=== PATIENT | male | born 1950 | race African-American/Black ===

== ENCOUNTER → 2016-08-19 | Outpatient (CLI) | payer OTHER ==
[2016-02-20 21:28] VITALS: BP 146/70
[~2016-08-19] MED LIST: ALLO100T PO; ASPI-482 PO; CEPH-264 PO; DRON400T PO; GLYB5TAB3 PO; HYDR-2762 PO; LISI2.5T PO; METO10TA PO; MULT-18 PO; NIAC1000 PO; OMEG1CAP6 PO; PANT40TA3 PO; SITA50TA PO; TAMS0.4C2 PO; WARF7.5T6 PO
--- NOTE | 2016-08-19 09:22 | KCIC ---
Examination: CT right shoulder without contrast HISTORY: History of right shoulder pain with movement after lifting injury COMPARISON: None available TECHNIQUE: Axial CT images of the right shoulder was performed without contrast. Coronal and sagittal reformats were performed Exposure: One or more of the following individualized dose reduction techniques were utilized for this examination: 1. Automated exposure control 2. Adjustment of the mA and/or kV according to patient size 3. Use of iterative reconstruction technique FINDINGS: The humerus head is within the glenoid. Mild degenerative disease identified in the acromioclavicular joint. There is no acute fracture identified. The muscle bulk grossly appears unremarkable. The acromion is type II with the inferior aspect of the acromion abutting the supraspinatus tendon anteriorly. The visualized right lung is grossly appears unremarkable. IMPRESSION: 1. No acute osseous findings. 2. The inferior aspect of the acromion abuts the superior aspect the supraspinatus tendon. Correlate for impingement. 3. Mild degenerative changes glenohumeral joint, acromioclavicular joint. Electronically signed by: Shane Hdez MD (08/19/2016 9:19 AM)
== END | disposition home or self-care (01) ==
LOC: KCIC CT 08:20
PROVIDERS: ATTEND Family Medicine
DX: M25.511 Pain in right shoulder (principal)
CPT/HCPCS: 73200

== ENCOUNTER → 2016-09-13 | Day surgery (SDC) | payer OTHER ==
[~2016-09-13] MED LIST changes: +CETI10TA16 PO; +FLUT1DIS IH; +HYDROmorphone 2 MG/ML VIAL IV PRN; +INSU300I SQ; +IV RINGERS,LACTATED 1000ML 1,000 ML IV SCH; +LIDOCAINE 1% 1 ML SYRINGE. ID PRN; +LIDOCAINE 2% PF Vial for OR 5 ML VIAL. ONE; +LINA5TAB4 PO; +METO25TA4 PO; +MORPHINE SULFATE 2 MG/ML DISP.SYRIN. IV PRN; +ONDANSETRON PF 4 MG/2 ML VIAL. IV PRN; +PROCHLORPERAZINE 10 MG/2 ML VIAL. IV PRN; +PROPOFOL 40 ML IV ONE; +SIMV20TA3 PO; +fentaNYL PF VIAL 100 MCG/2 ML VIAL IV PRN
--- NOTE | 2016-09-13 08:31 | PDOC1 ---
HISTORY & PHYSICAL H&P Guillermo Mosqueda [id number] 1950 08/12/2016 11:15 AM 02/27 [facility], [facility] OUR PATIENTS COME FIRST [address] [place], [place] [id number] Ph. [phone] Patient: Guillermo Mosqueda Date of : 1950 Date: 08/12/2016 11:15 AM Visit Type: Consult This 66 year old male presents for Blood in stool. History of Present Illness: 1. Blood in stool Quality: FOBT positive. Pertinent negatives include abdominal distention, abdominal pain, bloating, change in bowel habits, constipation, diarrhea, nausea , rectal pain, vomiting and weight loss. Additional information: Had ?? colonoscopy more then 4 yrs ago. Negative. INTAKE COMMENTS: Intake Comments: Nurse Note: The pt is here today due to positive hemoccult cards with his PCP, the pt states that he does have some dark stools. PROBLEM LIST: Problem Description Onset Date Chronic Notes Diabetic nephropathy associated with type 2 diabetes mellitus 04/01/2015 Hyperlipidemia LDL goal <100 04/01/2015 GERD without esophagitis 04/01/2015 Chronic kidney disease, stage 3, mod decreased GFR 05/01/2015 Uncomplicated asthma, unspecified asthma severity 04/01/2015 Paroxysmal atrial fibrillation 04/01/2015 PAST MEDICAL/SURGICAL HISTORY (Detailed) Disease/disorder Onset Date Management Date Comments bilateral SHIELA for osteoarhtritis left shouolder surgery for rotator cuff tear Appendectomy hemorrrhoidectomy Carpal tunnel release pacemaker 2001 Asthma Diabetes type 2 Hyperlipidemia Paroxysmal atrial fibrillation Medications (Active): Started Medication Directions Instruction Stopped 04/01/2015 Advair Diskus 100 mcg-50 mcg/dose powder for inhalation 2 puffs once daily 1 month supply 04/01/2015 allopurinol 100 mg tablet take 1 tablet by ORAL route every day 04/01/2015 aspirin 81 mg tablet,delayed release take 2 tablet by oral route every day 04/01/2015 Fish Oil 1,000 mg capsule take 2 by Oral route every day 04/28/2015 LISINOPRIL 2.5 MG TABLET TAKE ONE TABLET BY MOUTH DAILY 04/01/2015 metoprolol succinate ER 25 mg tablet,extended release 24 hr 1 po every hs 04/01/2015 multivitamin tablet take 1 tablet by oral route every day with food 04/01/2015 Niaspan 1,000 mg tablet,extended release 1 po every hs 05/01/2015 [place] 7.5 mg-325 mg tablet 1 po bid prn chronic pain #338.29 04/01/2015 Protonix 40 mg tablet,delayed release take 1 tablet by oral route every day 04/02/2015 simvastatin 40 mg tablet take 1 tablet by oral route every evening New dose 04/02/15; 04/01/2015 tamsulosin ER 0.4 mg capsule,extended release 24 hr take 1 capsule by oral route every day 1/2 hour following the same meal each day 04/01/2015 Toujeo SoloStar 300 unit/mL (1.5 mL) subcutaneous insulin pen 24 units at hs 04/01/2015 Tradjenta 5 mg tablet take 1 tablet by oral route every day 11/03/2015 ZYRTEC 10 MG TABLET TAKE [1] TABLET BY MOUTH ONCE DAILY Allergies: Ingredient Reaction Medication Name Comment CIPROFLOXACIN HCL nausea and vomiting Cipro CIPROFLOXACIN nausea and vomiting Cipro REVIEW OF SYSTEMS System Neg/Pos Details Constitutional Negative Chills, fever, malaise and weight loss. ENMT Negative Sore throat. Eyes Negative Double vision. Respiratory Negative Dyspnea and wheezing. Cardio Negative Chest pain and irregular heartbeat/palpitations. GI Positive See HPI. GI Negative Abdominal distention, abdominal pain, bloating, change in bowel habits, constipation, diarrhea, nausea, see HPI, rectal pain and vomiting. Negative Dysuria and hematuria. Endocrine Negative Cold intolerance and heat intolerance. Psych Negative Anxiety. Integumentary Negative Hives and rash. MS Negative Joint pain. Chris/Lymph Negative Easy bleeding and easy bruising. Allergic/Immuno Negative Food allergies. VITAL SIGNS Time BP mm/Hg Pulse /min Resp /min Temp F Ht ft Ht in Ht cm Wt lb Wt kg BMI kg/ m2 BSA m2 O2 Sat% 12:32 PM 132/78 86 97.8 0.0 0.00 198.20 89.902 96 Time Measured by 12:32 PM Cristina Prince PHYSICAL EXAM: Exam Findings Details Constitutional Normal Well developed. Eyes Normal Conjunctiva - Right: Normal, Left: Normal. Sclera - Right: Normal, Left: Normal. Nasopharynx Normal Lips/teeth/gums - Normal. Neck Exam Normal Inspection - Normal. Thyroid gland - Normal. Respiratory Normal Inspection - Normal. Auscultation - Normal. Cardiovascular Normal Regular rate and rhythm. No murmurs, gallops, or rubs. Vascular Normal Pulses - Carotids: Normal, Femoral: Normal, Dorsalis pedis: Normal. Abdomen Normal Inspection - Normal. Anterior palpation - No guarding. No abdominal tenderness. No hepatic enlargement. No splenic enlargement. No hernia. No ascites. Skin Normal Inspection - Normal. Extremity Normal No edema. Psychiatric * Oriented to time, place, person and situation. Psychiatric Normal Appropriate mood and effect. Assessment/Plan # Detail Type Description 1. Assessment Gastrointestinal hemorrhage, unspecified gastrointestinal hemorrhage type (K92.2). Patient Plan schedule colonoscopy and EGD at [facility] Plan Orders Further diagnostic evaluations ordered today include(s) Colonoscopy and EGD to be performed today. He is to schedule a follow-up visit with Mg Ch MD upon completion of work-up Electronically signed by: Mg Ch MD 08/12/2016 02:55 PM Document generated by: Mg Ch 08/12/2016 02:55 PM Fabiano Novak MD, Family Practice; Jordan Black MD Internal Medicine; Rossi Johnson MD, Internal Medicine; Nicanor Ch MD Internal Medicine; Mg Ch MD, Gastroenterology; Rajan Cardenas MD, Rheumatology, S. Kerwin Goldsmith, Physical Medicine/Rehab JKevin Edwards APRN ------ 09/13/16 Patient seen and examined. No change in H&P. MG CH MD Sep 13, 2016 08:31
[2016-09-13 10:06] VITALS: BP 104/58
== END | disposition home or self-care (01) ==
LOC: ENDOS 08:02
PROVIDERS: ATTEND Internal Medicine Gastroenterology
DX: K64.0 First degree hemorrhoids (principal); K21.0 Gastro-esophageal reflux disease with esophagitis; E78.00 Pure hypercholesterolemia, unspecified; I48.91 Unspecified atrial fibrillation; I10 Essential (primary) hypertension; J45.909 Unspecified asthma, uncomplicated; E11.9 Type 2 diabetes mellitus without complications; F17.200 Nicotine dependence, unspecified, uncomplicated; Z96.89 Presence of other specified functional implants; Z87.39 Personal history of other diseases of the musculoskeletal system and connective tissue; Z96.643 Presence of artificial hip joint, bilateral; Z86.39 Personal history of other endocrine, nutritional and metabolic disease; Z86.69 Personal history of other diseases of the nervous system and sense organs; Z88.1 Allergy status to other antibiotic agents; Z88.8 Allergy status to other drugs, medicaments and biological substances
CPT/HCPCS: 43235; 45378; J2001; J2704

== ENCOUNTER 2016-10-18 12:37 | Day surgery (SDC) | payer OTHER ==
[~2016-10-18] VITALS: Ht 175.3 cm; Wt 90.0 kg
[~2016-10-18 12:37] MED LIST changes: +CLINDAMYCIN 600MG PREMIX 50 ML IV PRN; +PROPOFOL 20 ML IV ONE; -PROPOFOL 40 ML IV ONE; +fentaNYL PF VIAL 100 MCG/2 ML VIAL ONE
[2016-10-18] MEDS ORDERED: BUPIVACAINE 0.25% 50 ML VIAL. ONE (13:14)
[2016-10-18] MEDS ORDERED: SEVOFLURANE 16 TO 30 MINUTES. IH ONE (13:45)
[2016-10-18] MEDS ORDERED: DEXAMETHASONE SOD PHOS 20 MG/5 ML VIAL. ONE (13:45)
[2016-10-18] MEDS ORDERED: ONDANSETRON PF 4 MG/2 ML VIAL. ONE (13:46)
--- NOTE | 2016-10-18 14:09 | DISCH ---
DISCHARGE INSTRUCTIONS Condition on Discharge Condition on Discharge: Stable Activity After Discharge Activity Instructions for Disc: Other, see below Other activity instructions: gentle range of motion of right elbow only may eat and do fine motor tasks Lifting Instructions after Dis: No heavy lifting, No pulling or pushing, Do not lift >10 pounds Diet after Discharge Diet after Discharge: Regular Wound Incision Care Wound/Incision Care: Keep wound elevated, Change dressing Other wound/incision instructi: May remove dressing after 3 days if no drainage may get wet in shower Contacting the DRKevin after DC Call your doctor for: Concerns you may have Follow-Up Follow up with: Dr. Saxena 10 days ANSELMO SAXENA MD Oct 18, 2016 14:09
[2016-10-18] MEDS ORDERED: HYDR-965 PO (14:10)
--- NOTE | 2016-10-18 14:17 | PDOC4 ---
Operative Note Operative Note Date of surgery: 10/18/2016 Preoperative diagnosis: Right cubital tunnel syndrome Postoperative diagnosis: Same Surgeon: Hemanth Anesthesia: Gen. endotracheal Estimated blood loss: 15 mL Complications: None Operative findings: Moderate to severe ulnar nerve compression at the cubital tunnel Operative indications: Patient is a 66-year-old male with severe numbness in the fourth and fifth fingers of his right hand dominant and tingling feelings of paresthesia confirmed by EMG test that showed moderate to severe compression at the cubital tunnel. I had gone over with him the usual treatment of nerve compression at the elbow including the possibility of generally keeping the elbow out in more extension particularly while sleeping a little it didn't bother him as much was sleeping as with activities and he is been through nonoperative treatment without success. I talked to him about the possibility of the nerves not coming back all the way even with complete release, the possibility of continued pain nerve or blood vessel damage infection medical other anesthetic complications among others. All his questions were answered consent was obtained and he agrees to proceed with surgical evaluation and treatment. Operative text: Patient was identified procedure verified. She was placed in the supine position on the operating table. After adequate amounts of general endotracheal anesthesia were administered, a tourniquet was placed on the upper right arm and the right upper extremity was then prepped and draped in standard sterile fashion. After timeout was performed patient procedure identified and verified, the right upper extremity was exsanguinated by Esmarch bandage tourniquet inflated to 250 mmHg and a curvilinear incision was made over the medial aspect of the right elbow. Careful dissection was carried out down to the cubital tunnel which was carefully entered and released along its length the ulnar nerve was freed up proximally to the medial intramuscular septum which was excised in the area of passage of the nerve. Distally was released to its penetration into the flexor pronator musculature. He was noted to have moderate to severe compression at the cubital tunnel itself which was completely released nerve was noted be stable without subluxation and was noted to glide freely with elbow motion. Tourniquet was then let down and bleeding points controlled by electrocautery subcutaneous repair to cushion the nerve was accomplished with Vicryl sutures subcutaneous and cutaneous closure accomplished with buried Vicryl suture skin closure with nylon suture sterile soft dressings were applied figures were noted to be warm pink following deflation tourniquet after total tourniquet time less than 15 minutes. Patient was returned to the recovery room in stable condition having tolerated procedure well ANSELMO DIAZ MD Oct 18, 2016 14:17
[2016-10-18] MEDS ORDERED: HYDROcodone/APAP 5/325MG 1 TAB TABLET PO ONE (14:45)
[2016-10-18 15:08] VITALS: BP 129/68
== END 2016-10-18 15:28 | disposition home or self-care (01) ==
LOC: SURG 12:37
PROVIDERS: ATTEND Orthopaedic Surgery
DX: G56.21 Lesion of ulnar nerve, right upper limb (principal); E11.42 Type 2 diabetes mellitus with diabetic polyneuropathy; E78.00 Pure hypercholesterolemia, unspecified; I48.91 Unspecified atrial fibrillation; J45.909 Unspecified asthma, uncomplicated; Z86.39 Personal history of other endocrine, nutritional and metabolic disease; Z72.89 Other problems related to lifestyle; Z96.643 Presence of artificial hip joint, bilateral; Z88.1 Allergy status to other antibiotic agents; Z91.048 Other nonmedicinal substance allergy status
CPT/HCPCS: 64718; 82962; C1769; J1100; J2405; J2704; J3010; J3490; J2001

== ENCOUNTER → 2017-09-25 | Outpatient (CLI) | payer OTHER ==
[2017-09-25] MEDS: LIDOCAINE 1% Multi-Dose 20 ML VIAL. ID (13:02)
[2017-09-25] MEDS: IOHEXOL 180 MG/ML 10 ML VIAL. INT ART (13:03)
== END | disposition home or self-care (01) ==
LOC: KCIC 12:14
DX: M25.711 Osteophyte, right shoulder (principal); E11.9 Type 2 diabetes mellitus without complications; E78.00 Pure hypercholesterolemia, unspecified; J45.909 Unspecified asthma, uncomplicated; I12.9 Hypertensive chronic kidney disease with stage 1 through stage 4 chronic kidney disease, or unspecified chronic kidney disease; N18.3 Chronic kidney disease, stage 3 (moderate); K21.0 Gastro-esophageal reflux disease with esophagitis; Z86.69 Personal history of other diseases of the nervous system and sense organs; Z87.39 Personal history of other diseases of the musculoskeletal system and connective tissue; Z86.39 Personal history of other endocrine, nutritional and metabolic disease
CPT/HCPCS: 73040; 73201; Q9965

== ENCOUNTER 2017-10-18 09:10 | Day surgery (SDC) | payer OTHER ==
[~2017-10-18] VITALS: Ht 172.7 cm; Wt 95.3 kg
[~2017-10-18 09:10] MED LIST changes: -CLINDAMYCIN 600MG PREMIX 50 ML IV PRN; +CLINDAMYCIN 900MG PREMIX 50 ML IV ONE; +HYDR-965 PO; -LIDOCAINE 1% 1 ML SYRINGE. ID PRN; +LIDOCAINE 1% PF 2 ML VIAL. ID PRN; -LIDOCAINE 2% PF Vial for OR 5 ML VIAL. ONE; -MORPHINE SULFATE 2 MG/ML DISP.SYRIN. IV PRN; +MORPHINE SULFATE 2 MG/ML VIAL. IV PRN; -PROPOFOL 20 ML IV ONE; +WARF7.5T45 PO; -WARF7.5T6 PO; -fentaNYL PF VIAL 100 MCG/2 ML VIAL ONE
[2017-10-18] MEDS ORDERED: EPINEPHrine VIAL 30 MG/30 ML VIAL ONE (09:17)
[2017-10-18] MEDS ORDERED: LIDOCAINE 1% PF 30 ML VIAL. ONE (09:18)
[2017-10-18] MEDS ORDERED: BUPIVACAINE 0.5% 50 ML VIAL. ONE (09:18)
[2017-10-18] MEDS ORDERED: ROCURONIUM 50 MG/5 ML VIAL. ONE (09:52)
[2017-10-18] MEDS ORDERED: fentaNYL PF VIAL 250 MCG/5 ML VIAL ONE (09:53)
[2017-10-18] MEDS ORDERED: LIDOCAINE 2% PF Vial for OR 5 ML VIAL. ONE (09:56)
[2017-10-18] MEDS ORDERED: DEXAMETHASONE SOD PHOS 20 MG/5 ML VIAL. ONE (09:56)
[2017-10-18] MEDS ORDERED: ONDANSETRON PF 4 MG/2 ML VIAL. ONE (09:56)
[2017-10-18] MEDS ORDERED: PROPOFOL 20 ML IV ONE (09:56)
--- NOTE | 2017-10-18 10:09 | DISCH ---
DISCHARGE INSTRUCTIONS Condition on Discharge Condition on Discharge: Stable Activity After Discharge Activity Instructions for Disc: Activity as tolerated, Other, see below Other activity instructions: arm to remain in sling Lifting Instructions after Dis: No heavy lifting, No pulling or pushing, Do not lift >10 pounds Weight Bearing Status after Di: Full weight bearing, Non weight bearing Diet after Discharge Diet after Discharge: Regular Wound Incision Care Wound/Incision Care: Ice to area for comfort, Keep wound/cast CDI, Keep wound elevated, Change dressing Contacting the DR. after DC Call your doctor for: Concerns you may have Follow-Up Follow up with: Delia in 2 wks ALFREDO VELARDE II, MD Oct 18, 2017 10:09
[2017-10-18] MEDS ORDERED: ROPIVacaine 0.5% PF 20 ML VIAL. ONE (10:10)
[2017-10-18] MEDS ORDERED: HYDR-2758 PO (10:14)
[2017-10-18] MEDS ORDERED: MIDAZOLAM HCL/PF 2 MG/2 ML VIAL. ONE (10:27)
[2017-10-18] MEDS ORDERED: MIDAZOLAM HCL/PF 2 MG/2 ML VIAL. IV ONE (10:45)
[2017-10-18] MEDS ORDERED: NEOSTIGMINE METHYLSULFATE 5 MG/5 ML SYRINGE. ONE (11:57)
[2017-10-18] MEDS ORDERED: GLYCOPYRROLATE 1 MG/5 ML VIAL. ONE (11:57)
[2017-10-18] MEDS ORDERED: SEVOFLURANE 61 TO 120 MINUTES. IH ONE (11:58)
--- NOTE | 2017-10-18 12:20 | PDOC4 ---
Operative Note Operative Note Date of procedure: 10/18/2017 Surgeon: David Velarde White Kid Buffer: Nikki Coley, certified orthoptist Preoperative diagnosis: Right shoulder rotator cuff tear, incomplete Postoperative diagnosis: incomplete tear right shoulder rotator cuff, biceps rupture Procedure performed: Diagnostic right shoulder arthroscopy, arthroscopic assisted rotator cuff repair Anesthesia: Gen. plus regional nerve block Findings: #1 grade 1-2 changes at glenoid, intact humeral cartilage #2 biceps rupture #3 intact glenoid labrum #4 no loose bodies #5 Fraying and softening of supraspinatus Blood loss: 10 mL Components inserted: Perez and nephew Helacoil anchor Complications: none Reason for procedure: Patient is a very pleasant 67-year-old gentleman with a 6- 7 month history of right shoulder pain that began as he was lifting his , we had tried conservative therapies including anti-inflammatories, intra- articular injection, this gave him some good initial relief, and physical therapy. CAT scan arthrogram was obtained secondary to pacemaker. I reviewed this and discussed a diagnostic shoulder arthroscopy with likely rotator cuff repair and labral debridement with him. He wished to proceed. Description of procedure: Patient was greeted in the preoperative area by myself for the correct extremity was verified and marked. He is taken to the operative suite and his antibiotics were started as he was brought back. Once in the operating room, he was transferred gently supine to the operating table. It should be noted, he had placement of a regional nerve block prior to coming back to the OR. After successful induction of a general anesthetic, we positioned him in a beachchair position maintaining his C-spine in neutral position, he was secured to the bed with all pressure points padded, large pad under his legs. We then proceeded prep and drape right upper extremity and shoulder girdle in our usual sterile fashion including Ioban at the periphery. After accomplishing this, I palpated and marked surface anatomy and used a spinal needle to localize my posterior superior portal and incised skin in accordance with this. Attention to use a blunt arthroscopic trocar followed by the camera into the glenohumeral joint and used a spinal to localize an anterosuperior portal and created this hole and dilated. I conducted my diagnostic arthroscopy with the above-noted findings. I then inspected his rotator cuff closely. At the supraspinous, he had some intra-articular fraying and excelling type appearance to some of the tendon so I passed a PDS suture through with a spinal needle from the lateral portal. I shuttled this out and clamped it to itself. I then placed the camera in the subacromial space and used a comminution of shaver and cautery to perform a bursectomy, after I created a lateral portal. After this, I further inspected the rotator cuff tear and was easily able to enter the substance of the tendon with the blunt arthroscopic trocar. Therefore remove the PDS and begin debriding this area to remove all the unhealthy tendon. I prepared the bony bed, taken care not to decorticate. This left me with a full-thickness lesion approximate 1 cm long. I then placed a helical oil anchor him to this area and then used the Perez & NephMyntra first pass device to shuttle the suture limbs through in a simple configuration. It should be noted a decrease accessory anterolateral portal for suture management. I then tied the suture limbs down with arthroscopic knot- tying techniques. The repair was stable to probing and I noted no gapping at the bone tendon interface on gentle rotation of the shoulder. I then removed all loose bony debris another scattered debris. I then removed all excess arthroscopic fluid and the arthroscopic its mentation. Portals were closed with simple interrupted 3-0 nylon. The shoulder was cleansed and dried and a sterile dressing was applied followed by an abduction pillow sling. The patient tolerated surgery well. At the conclusion of the surgery, he was laid gently supine and transferred gently supine to the recovery room cart and taken to PACU in a stable and extubated condition. Postoperative plan is to discharge him home. Nonweightbearing 4 weeks. Sling 4 weeks. Well get him started on physical therapy. He will follow up with me in 2 weeks, sooner should a problem arise DAVID VELARDE II, MD Oct 18, 2017 12:20
[2017-10-18] MEDS ORDERED: OXYC-323 PO (12:42)
[2017-10-18] MEDS ORDERED: DOCU-109 PO (12:43)
[2017-10-18] MEDS ORDERED: ONDA8TAB12 PO (12:44)
[2017-10-18] MEDS ORDERED: oxyCODONE/APAP 5/325 1 TAB TABLET ONE (13:16)
[2017-10-18 13:30] VITALS: BP 152/70
[2017-10-18] MEDS ORDERED: oxyCODONE/APAP 5/325 1 TAB TABLET PO ONE (13:30)
[2017-10-18] MEDS ORDERED: INSULIN ASPART 100 UNIT/ML 10ML VIAL. SQ ONE (13:30)
== END 2017-10-18 14:12 | disposition home or self-care (01) ==
LOC: SURG 09:10
PROVIDERS: ATTEND Orthopaedic Surgery Sports Medicine
DX: M75.111 Incomplete rotator cuff tear or rupture of right shoulder, not specified as traumatic (principal); M75.81 Other shoulder lesions, right shoulder; I12.9 Hypertensive chronic kidney disease with stage 1 through stage 4 chronic kidney disease, or unspecified chronic kidney disease; N18.3 Chronic kidney disease, stage 3 (moderate); K21.9 Gastro-esophageal reflux disease without esophagitis; E78.00 Pure hypercholesterolemia, unspecified; E11.9 Type 2 diabetes mellitus without complications; E11.40 Type 2 diabetes mellitus with diabetic neuropathy, unspecified; I48.91 Unspecified atrial fibrillation; G47.30 Sleep apnea, unspecified; J45.909 Unspecified asthma, uncomplicated; Z98.890 Other specified postprocedural states; Z79.899 Other long term (current) drug therapy; Z79.82 Long term (current) use of aspirin; Z79.4 Long term (current) use of insulin; Z98.42 Cataract extraction status, left eye; Z98.41 Cataract extraction status, right eye; Z95.0 Presence of cardiac pacemaker; Z87.39 Personal history of other diseases of the musculoskeletal system and connective tissue; Z96.643 Presence of artificial hip joint, bilateral; Z72.89 Other problems related to lifestyle; Z87.891 Personal history of nicotine dependence
CPT/HCPCS: 29827; 82962; C1713; C1782; J0171; J1100; J2001; J2250; J2405; J2704; J2710; J2795; J3010; J3490; J7120; A7015

== ENCOUNTER → 2019-06-12 | Outpatient (CLI) | payer OTHER ==
[~2019-06-12] MED LIST changes: -CLINDAMYCIN 900MG PREMIX 50 ML IV ONE; +DOCU-109 PO; +HYDR-2761 PO; -HYDR-2762 PO; +HYDR-2765 PO; +HYDR-3165 PO; -HYDR-965 PO; -HYDROmorphone 2 MG/ML VIAL IV PRN; -IV RINGERS,LACTATED 1000ML 1,000 ML IV SCH; -LIDOCAINE 1% PF 2 ML VIAL. ID PRN; +LINA5TAB PO; -LINA5TAB4 PO; -MORPHINE SULFATE 2 MG/ML VIAL. IV PRN; +ONDA8TAB12 PO; -ONDANSETRON PF 4 MG/2 ML VIAL. IV PRN; +OXYC1TAB15 PO; -PANT40TA3 PO; +PANT40TA77 PO; -PROCHLORPERAZINE 10 MG/2 ML VIAL. IV PRN; +SIMV20TA18 PO; -SIMV20TA3 PO; -fentaNYL PF VIAL 100 MCG/2 ML VIAL IV PRN
--- NOTE | 2019-06-12 11:06 | KCIC ---
EXAM: CT right hip without IV contrast INDICATION: Right hip pain. History of surgery 2006. Worsening pain in the last 2-3 years TECHNIQUE: Noncontrast helical CT of the right hip was performed at 3 mm slice thickness and reviewed in multiplanar reformats in bone and soft tissue algorithm reconstructions. All CT scans performed at this facility utilize dose optimization techniques as appropriate to the exam, including the following: Automated exposure control and adjustment of the mA and/or KV according to patient size (this includes techniques or standardized protocols for targeted exams where dose is indication/reason for exam). IV CONTRAST: Not administered COMPARISON: 06/07/2019 right hip x-rays FINDINGS: Bilateral total hip arthroplasty is evident on the toy department manager image. Alignment of the femoral and acetabular prostheses appears anatomic. There is beam hardening artifact that degrades detail. No acute fracture or aggressive appearing osseous lesions are seen. No significant lucency in the acetabulum suggestive of particle disease is identified. No joint effusion or fluid collection is evident. No bony erosive changes are seen. The soft tissues around the right hip show scattered arterial calcifications and calcification in the right hamstring musculature suggestive old muscular tear. IMPRESSION: Right hip arthroplasty in good alignment and without obvious complicating features on noncontrast CT. No specific cause for right hip pain is identified. Electronically signed by: Stephan Tee MD (06/12/2019 11:03 AM) [id number]
== END | disposition home or self-care (01) ==
LOC: KCIC CT 10:09
PROVIDERS: ATTEND Orthopaedic Surgery Sports Medicine
DX: M25.551 Pain in right hip (principal); Z96.643 Presence of artificial hip joint, bilateral
CPT/HCPCS: 73700

== ENCOUNTER 2019-10-07 00:15 | Emergency (ER) | payer OTHER ==
[~2019-10-07] VITALS: Ht 175.3 cm; Wt 93.6 kg
[2019-10-07] MEDS ORDERED: LIDOCAINE 1% PF 2 ML VIAL. INJ ONE (00:45)
--- NOTE | 2019-10-07 00:45 | PHYS DOC ---
Past Medical History Past Medical History: A-Fib, Asthma, CAD, Diabetes-Type II, GI Bleed, High Cholesterol, Hypertension, Renal Disease Additional Past Medical Histor: Stage 2 renal disease Past Surgical History: Appendectomy, Hip Replacement Additional Past Surgical Histo: CARPAL TUNNEL, ABLATION, ROTAR-CUFF, Smoking Status: Former Smoker Alcohol Use: Occasionally Drug Use: None General Adult EDM: Chief Complaint: FOREIGNBODY EAR HPI: HPI: Patient is a 69 year old male who presents with foreign body sensation in the right ear. Patient reports about 30 minutes prior to arrival he noted that the right ear had a bug fly into it. That stuck there and he is here to get it removed. He otherwise reports he has been doing well and denies any other complaints. Review of Systems: Review of Systems: Constitutional: Denies fever or chills. [] Eyes: Denies change in visual acuity. [] HENT: Denies nasal congestion or sore throat. [] Respiratory: Denies cough or shortness of breath. [] Cardiovascular: Denies chest pain or edema. [] GI: Denies abdominal pain, nausea, vomiting, bloody stools or diarrhea. [] : Denies dysuria. [] Musculoskeletal: Denies back pain or joint pain. [] Integument: Denies rash. [] Heart Score: Risk Factors: Risk Factors: DM, Current or recent (<one month) smoker, HTN, HLP, family history of CAD, obesity. Risk Scores: Score 0 - 3: 2.5% MACE over next 6 weeks - Discharge Home Score 4 - 6: 20.3% MACE over next 6 weeks - Admit for Clinical Observation Score 7 - 10: 72.7% MACE over next 6 weeks - Early Invasive Strategies Allergies: Allergies: Allergies Coded Allergies Type Severity Reaction Last Updated Verified ciprofloxacin Allergy Intermediate 08/26/19 Yes ciprofloxacin HCl Allergy Intermediate 08/26/19 Yes clavulanic acid Allergy Intermediate STOMACH UPSET 08/26/19 Yes tuberculin, purified protein deriva Allergy Intermediate 08/26/19 Yes amoxicillin Adverse Reaction Unknown STOMACH UPSET 08/26/19 Yes Physical Exam: PE: Constitutional: Well developed, well nourished, no acute distress, non-toxic appearance. [] HENT: Normocephalic, atraumatic, bilateral external ears normal, right ear EAC with bug present, left EAC without any foreign body. Oropharynx moist, no oral exudates, nose normal. [] Eyes: PERRLA, EOMI, conjunctiva normal, no discharge. [] Neck: Normal range of motion, no tenderness, supple, no stridor. [] [] EKG: EKG: [] Radiology/Procedures: Radiology/Procedures: [] Course & Med Decision Making: Course & Med Decision Making Pertinent Labs and Imaging studies reviewed. (See chart for details) 0044-patient was seen and evaluated. This is a blood present in the gentleman tear. We will do some local lidocaine to kill the bug and then will flush it out. This will be performed by the nursing staff. I discussed reasons to return, treatment plan and need for follow-up 0114-patient tolerated procedure well. I discussed reasons to return, treatment plan and need for follow-up. [] Dragon Disclaimer: Dragon Disclaimer: This electronic medical record was generated, in whole or in part, using a voice recognition dictation system. Departure Departure Impression: Primary Impression: Foreign body in right ear, initial encounter Disposition: 01 HOME, SELF-CARE Condition: IMPROVED Referrals: EDNA CAMPOS MD (PCP) Patient Instructions: Ear Foreign Body Justicifation of Admission Dx: Justifications for Admission: Justification of Admission Dx: N/A MOUSTAPHA SYLVESTER MD Oct 07, 2019 00:45
[2019-10-07 01:26] VITALS: BP 113/56
== END 2019-10-07 01:27 | disposition home or self-care (01) ==
LOC: ER 00:15
DX: T16.1XXA Foreign body in right ear, initial encounter (principal); J45.909 Unspecified asthma, uncomplicated; I11.9 Hypertensive heart disease without heart failure; E78.00 Pure hypercholesterolemia, unspecified; E11.9 Type 2 diabetes mellitus without complications; Z90.89 Acquired absence of other organs; Z98.890 Other specified postprocedural states; Z87.891 Personal history of nicotine dependence; Z88.1 Allergy status to other antibiotic agents; Z88.8 Allergy status to other drugs, medicaments and biological substances; W45.8XXA Other foreign body or object entering through skin, initial encounter; Y93.89 Activity, other specified; Y92.89 Other specified places as the place of occurrence of the external cause; Y99.8 Other external cause status
CPT/HCPCS: 96372; 99284; J3490; 69209